=== PATIENT | female | born 2000 | race Hispanic/Latino ===

== ENCOUNTER 2023-09-26 19:34 | Emergency (ER) | payer BC ==
[~2023-09-26] VITALS: Ht 170.2 cm; Wt 74.8 kg
[2023-09-26 21:15] LABS: INFLUENZAE A&B ANTIGEN (RAPID) NEGATIVE (NEGATIVE)
[2023-09-26 21:16] LABS: BILIRUBIN,URINE NEGATIVE (NEGATIVE); CLARITY,URINE SL CLOUDY (CLEAR); COLOR,URINE YELLOW (YELLOW); KETONES,URINE NEGATIVE (NEGATIVE); LEUKOCYTE ESTERASE ,URINE NEGATIVE (NEGATIVE); NITRITE,URINE NEGATIVE (NEGATIVE); PH,URINE 6 (5 - 7); PROTEIN,URINE DIPSTICK NEGATIVE (NEGATIVE); URINE UROBILINOGEN 0.2 mg/dL (0.2 - 1)
[2023-09-26 21:17] LABS: PREGNANCY TEST, URINE NEGATIVE (NEGATIVE)
[2023-09-26] MEDS: METOCLOPRAMIDE HCL 10 MG/2ML VIAL IV ONE (21:18)
[2023-09-26] MEDS: SODIUM CHLORIDE 0.9% 1000ML 1,000 ML IV SCH (21:18)
[2023-09-26] MEDS: KETOROLAC TROMETHAMINE 30 MG/ML VIAL IV STA (21:18)
[2023-09-26] MEDS: DIPHENHYDRAMINE HCL 25 MG CAP PO ONE (21:18)
[2023-09-26 21:21] LABS: RESPIRATORY SYNC. VIRUS NEGATIVE (NEGATIVE)
[2023-09-26 21:29] LABS: BACTERIA,URINE MODERATE /HPF; EPITHELIAL CELLS,URINE FEW /LPF; GLUCOSE, URINE NEGATIVE (NEGATIVE); TRANSITIONAL EPI CELLS,URINE MODERATE
[2023-09-26] MEDS ORDERED: HALOPERIDOL1 MG PO (21:29)
[2023-09-27] VITALS: PULSE 79; RESP 17; TEMP 98.2
[2023-09-27 00:37] VITALS: BP 107/68; PULSE 79; RESP 17; TEMP 98.2; O2SAT 99
== END 2023-09-27 00:13 | disposition home or self-care (01) ==
LOC: ER 19:52
DX: R50.9 Fever, unspecified (principal); R51.9 Headache, unspecified; Z11.52 Encounter for screening for COVID-19
CPT/HCPCS: 70450; 81001; 81025; 87400; 87420; 99284; J1885; J2765; J7030; U0002